=== PATIENT | female | born 2000 | race Hispanic/Latino ===

== ENCOUNTER 2022-01-11 19:15 | Emergency (ER) | payer OTHER ==
[~2022-01-11] VITALS: Ht 160 cm; Wt 71.8 kg
[2022-01-11] MEDS ORDERED: PROCARDIA XL30 MG PO (20:57)
[2022-01-11] MEDS ORDERED: LEVALBUTER1.25 MG/0. (20:58)
[2022-01-11 21:48] VITALS: BP 126/85
[2022-01-11] MEDS ORDERED: BACTRIM DS1 TAB PO (22:01)
[2022-01-11 22:12] VITALS: BP 126/85
== END 2022-01-11 22:12 | disposition home or self-care (01) ==
LOC: ED 19:15
DX: L02.31 Cutaneous abscess of buttock (principal)

== ENCOUNTER 2022-01-15 13:06 | Emergency (ER) | payer OTHER ==
[~2022-01-15] VITALS: Ht 160 cm; Wt 71.0 kg
[~2022-01-15 13:06] MED LIST: BACTRIM DS1 TAB PO; LEVALBUTER1.25 MG/0.; PROCARDIA XL30 MG PO
[2022-01-15 13:47] VITALS: BP 119/80
[2022-01-16] MEDS ORDERED: NAPROXEN500 MG PO (17:32)
== END 2022-01-15 13:47 | disposition home or self-care (01) ==
LOC: ED 13:06
DX: Z48.01 Encounter for change or removal of surgical wound dressing (principal)

== ENCOUNTER 2022-01-16 09:52 | Emergency (ER) | payer OTHER ==
[~2022-01-16] VITALS: Ht 160 cm; Wt 71.8 kg
[2022-01-16 10:15] VITALS: BP 118/80
[2022-01-16 10:42] LABS: HEMATOCRIT 31.5 % (37.0-47.0); HEMOGLOBIN 10.1 g/dl (12.0-16.0); IMMATURE GRANULOCYTES 0.1 % (0.0-5.0); MEAN CELL VOLUME 87.5 fL CALC (80.0-100.0); MEAN CORPUSCULAR HGB 28.1 pG CALC (26.0-32.0); MEAN CORPUSCULAR HGB CONC 32.1 g/dL CAL (32.0-36.0); NEUT# 5.76 thou/uL (2.00-7.15); RED BLOOD COUNT 3.6 mill/uL (4.20-5.60); RED CELL DISTRI WIDTH 13.4 % (11.5-15.5)
[2022-01-16 11:09] LABS: ALBUMIN 4.3 g/dL (3.2-5.0); ALKALINE PHOSPHATASE 130 u/l (38-126); ANION GAP 16 (6-22 (CALC)); BILIRUBIN, TOTAL 0.2 mg/dL (0.0-1.4); BUN 8 mg/dL (7-17); BUN/CREATININE RATIO 14 (12-20 (CALC)); CARBON DIOXIDE 23 mmol/l (22-30); CHLORIDE 107 mmol/l (95-108); CREATININE 0.5 mg/dL (0.5-1.0); GFR FOR AFR.AMER. > 60 ML/MIN (>=60 (CALC)); GFR OTHER RACES > 60 ML/MIN (>=60 (CALC)); LIPASE 76 u/l (23-300); SGOT/AST 19 u/l (14-36); SODIUM 142 mmol/l (137-146); TOTAL PROTEIN 7.4 g/dL (6.3-8.2)
[2022-01-16 13:12] LABS: URINE BLOOD DIPSTICK LARGE (NEGATIVE); URINE GLUCOSE - DIPSTICK NEGATIVE (NEGATIVE); URINE KETONE TRACE mg/dL (NEGATIVE); URINE LEUK ESTERASE NEGATIVE (NEGATIVE); URINE PROTEIN - DIPSTICK 100 mg/dL (NEG-TRACE); URINE SPECIFIC GRAVITY >=1.030; URINE UROBILINOGEN - DIPSTICK 0.2 E.U./dL (0.2)
[2022-01-16 13:15] LABS: URINE BILIRUBIN - DIPSTICK SMALL (NEGATIVE); URINE COLOR RED; URINE NITRITE - DIPSTICK NEGATIVE (Negative); URINE RBC TNTC RBC/hpf (0-5)
[2022-01-16 13:16] LABS: URINE SQUAMOUS EPITHELIAL CELL FEW EPI/hpf (0-FEW)
[2022-01-16] MEDS ORDERED: NAPROXEN500 MG PO (17:32)
[2022-01-16 17:59] VITALS: BP 118/80
== END 2022-01-16 18:16 | disposition home or self-care (01) ==
LOC: ED 09:52
PROVIDERS: Family Medicine
DX: O72.2 Delayed and secondary postpartum hemorrhage (principal)
CPT/HCPCS: Q9967

== ENCOUNTER 2023-10-02 18:11 | Emergency (ER) | payer SELFPAY ==
[~2023-10-02] VITALS: Ht 160 cm; Wt 73.9 kg
[~2023-10-02 18:11] MED LIST changes: +NAPROXEN500 MG PO
[2023-10-02 18:19] VITALS: BP 148/94
[2023-10-02] MEDS ORDERED: SODIUM CHLORIDE 0.9% 1,000 ML IV ONE (18:25)
[2023-10-02 18:30] VITALS: BP 130/78
[2023-10-02 18:43] LABS: BASO% 0.5 % (0-3); EOS% 0.7 % (0-8); HEMATOCRIT 38.6 % (37.0-47.0); HEMOGLOBIN 12.4 g/dl (12.0-16.0); IMMATURE GRANULOCYTES 0.3 % (0.0-5.0); MEAN CELL VOLUME 87.1 fL CALC (80.0-100.0); MEAN CORPUSCULAR HGB CONC 32.1 g/dL CAL (32.0-36.0); MONO% 5.5 % (2-13); NEUT# 5.17 thou/uL (2.00-7.15); RED BLOOD COUNT 4.43 mill/uL (4.20-5.60); RED CELL DISTRI WIDTH 13.1 % (11.5-15.5)
[2023-10-02 18:44] LABS: URINE BILIRUBIN - DIPSTICK Negative (NEGATIVE); URINE BLOOD DIPSTICK Negative (NEGATIVE); URINE GLUCOSE - DIPSTICK Negative (NEGATIVE); URINE KETONE Negative (NEGATIVE); URINE LEUK ESTERASE Negative (NEGATIVE); URINE NITRITE - DIPSTICK Negative (Negative); URINE PROTEIN - DIPSTICK Negative (NEG-TRACE); URINE SPECIFIC GRAVITY >=1.030; URINE UROBILINOGEN - DIPSTICK 0.2 E.U./dL (0.2)
[2023-10-02 18:45] VITALS: BP 124/79
[2023-10-02 18:46] LABS: URINE COLOR Yellow
[2023-10-02 18:56] LABS: ALBUMIN 4.8 g/dL (3.2-5.0); CREATININE 0.6 mg/dL (0.5-1.0); POTASSIUM 3.4 mmol/l (3.5-5.1); TOTAL PROTEIN 8.5 g/dL (6.3-8.2)
[2023-10-02 18:57] LABS: BILIRUBIN, TOTAL 0.4 mg/dL (0.02-1.3)
[2023-10-02 19:00] VITALS: BP 123/76
[2023-10-02] MEDS ORDERED: ANTI-DIARRHE2 M1 PO (20:44)
[2023-10-02 20:45] VITALS: BP 123/76
[2023-10-02] MEDS ORDERED: LOPERAMIDE HCL 2 MG CAP PO ONE (20:45)
== END 2023-10-02 20:58 | disposition home or self-care (01) | DRG 392 ==
LOC: ED 18:11
PROVIDERS: Family Medicine
DX: R19.7 Diarrhea, unspecified (principal); R10.9 Unspecified abdominal pain
CPT/HCPCS: Q9967